=== PATIENT | male | born 2005 | race Two or more races ===

== ENCOUNTER 2025-01-03 21:57 | Emergency (ER) | payer MEDICAID, MEDICARE ==
[~2025-01-03] VITALS: Ht 167.6 cm; Wt 57.6 kg
[2025-01-03 22:23] VITALS: BP 120/73; PULSE 119; RESP 16; TEMP 99.8; O2SAT 96
[2025-01-03 23:04] LABS: Basophils # (auto) 0 10 ^3/uL (0-0.2); Basophils % (auto) 0.5 % (0.0-2.0); Eosinophils # (auto) 0 10 ^3/uL (0-0.8); Eosinophils % (auto) 0.3 % (0.0-7.0); Hematocrit 44.3 % (41.0-53.0); Hemoglobin 15.1 g/dL (13.5-17.5); Mean Corpuscular Hemoglobin 28.7 pg (28.0-32.0); Mean Corpuscular Hgb Conc. 34.1 g/dL (32.0-36.0); Mean Corpuscular Volume 84.2 fL (80.0-100.0); Monocytes # (auto) 0.5 10 ^3/uL (0-1.3); Neutrophils # (auto) 6.2 10 ^3/uL (1.6-8.6); Neutrophils % (auto) 70.2 % (37.0-80.0); Platelet Count (auto) 252 10^3/uL (140-450); Red Blood Cells 5.25 10^6/uL (4.5-5.90); Red Cell Distribution Width 15.1 % (11.8-14.3); White Blood Cell 8.9 10^3/uL (4.4-10.8)
[2025-01-03 23:16] LABS: Potassium 3.9 mmol/L (3.5-5.1); Sodium 142 mmol/L (136-145)
[2025-01-03 23:17] LABS: Anion Gap 8 (5-15); Carbon Dioxide 26 mmol/L (20-31)
[2025-01-03 23:21] LABS: Calcium 10.6 mg/dL (8.7-10.4); Chloride 108 mmol/L (98-107)
[2025-01-03 23:22] LABS: BUN/Creatinine Ratio 10.6 (10.0-20.0); Blood Urea Nitrogen 11 mg/dL (9-23)
[2025-01-03 23:23] LABS: Blood Alcohol 3.5 mg/dL (<10)
[2025-01-03 23:27] LABS: Acetaminophen < 2.0 UG/ML (10.0-20.0); Glucose 115 mg/dL (74-106); Salicylate < 3.0 mg/dL (-30)
--- NOTE | 2025-01-04 04:13 | ED.PDOC ---
History of Present Illness HPI Comments 19 y/o M presents with c/o auditory hallucinations. Patient endorses on hearing voices in his head, instructing him to kill himself by running to live traffic, lately. Denies any suicidal attempt along with any suicidal or homicidal ideations, visual hallucinations, or further associated symptoms. Chief Complaint: Mental Health Time Seen by MD: 23:30 Reviewed Notes: Nurses Notes, Medications, Allergies Allergies: Coded Allergies: No Known Drug Allergy (Verified Allergy, Unknown, 01/03/25) Information Source: Patient Mode of Arrival: Ambulatory Severity: Moderate Timing: Hours Duration: Since onset Prehospital treatment: None Past Medical History PAST MEDICAL HISTORY: DM, High Lipids, HTN All Other Systems: Reviewed and Negative (Comprehensive systems review obtained and negative except for what is stated in the HPI.) Physical Exam General Appearance: No Apparent Distress, Normal HEENT: Normal ENT Inspection, Pharynx Normal, TMs Normal Neck: Full Range of Motion, Non-Tender, Normal, Normal Inspection Respiratory: Chest Non-Tender, Lungs Clear, No Accessory Muscle Use, No Respiratory Distress, Normal Breath Sounds Cardiovascular: No Edema, No JVD, No Murmur, No Gallop, Normal Peripheral Pulses, Regular Rate/Rhythm Breast Exam: Deferred Gastrointestinal: No Organomegaly, Non Tender, No Pulsatile Mass, Normal Bowel Sounds, Soft Genitalia: Deferred Pelvic: Deferred Rectal: Deferred Extremities: No calf tenderness, Normal capillary refill, Normal inspection, Normal range of motion, Non-tender, No pedal edema Musculoskeletal : Apperance: Normal Neurologic: Alert, cloth shrinking supervisor II-XII nml as Tested, No Motor Deficits, Normal Affect, Normal Mood, No Sensory Deficits Cerebellar Function: Normal Reflexes: Normal Skin: Dry, Normal Color, Warm Lymphatic: No Adenopathy Was a procedure done? Was a procedure done?: No Differential Dx Considerations may include: schizoaffective disorder, depression, hopelessness, suicidal, among others X-Ray, Labs, Meds, VS Vital Signs Date Time Temp Pulse Resp B/P (MAP) Pulse Ox O2 Delivery O2 Flow Rate FiO2 01/03/25 22:23 99.8 119 16 120/73 (89) 96 99.8 Lab Test 01/03/25 22:45 Range/Units White Blood Count 8.9 4.4-10.8 10^3/uL Red Blood Count 5.25 4.5-5.90 10^6/uL Hemoglobin 15.1 13.5-17.5 g/dL Hematocrit 44.3 41.0-53.0 % Mean Corpuscular Volume 84.2 80.0-100.0 fL Mean Corpuscular Hemoglobin 28.7 28.0-32.0 pg Mean Corpuscular Hemoglobin Concent 34.1 32.0-36.0 g/dL Red Cell Distribution Width 15.1 H 11.8-14.3 % Platelet Count 252 140-450 10^3/uL Mean Platelet Volume 8.3 6.9-10.8 fL Neutrophils (%) (Auto) 70.2 37.0-80.0 % Lymphocytes (%) (Auto) 23.0 10.0-50.0 % Monocytes (%) (Auto) 6.0 0.0-12.0 % Eosinophils (%) (Auto) 0.3 0.0-7.0 % Basophils (%) (Auto) 0.5 0.0-2.0 % Neutrophils # (Auto) 6.2 1.6-8.6 10 ^3/uL Lymphocytes # (Auto) 2.0 0.4-5.4 10 ^3/uL Monocytes # (Auto) 0.5 0-1.3 10 ^3/uL Eosinophils # (Auto) 0 0-0.8 10 ^3/uL Basophils # (Auto) 0 0-0.2 10 ^3/uL Nucleated Red Blood Cells 0.0 % Sodium Level 142 136-145 mmol/L Potassium Level 3.9 3.5-5.1 mmol/L Chloride Level 108 H 98-107 mmol/L Carbon Dioxide Level 26 20-31 mmol/L Anion Gap 8 5-15 Blood Urea Nitrogen 11 9-23 mg/dL Creatinine 1.04 0.700-1.30 mg/dL Glomerular Filtration Rate Calc 106 >90 mL/min BUN/Creatinine Ratio 10.6 10.0-20.0 Serum Glucose 115 H 74-106 mg/dL Calcium Level 10.6 H 8.7-10.4 mg/dL Salicylates Level < 3.0 -30 mg/dL Acetaminophen Level < 2.0 L 10.0-20.0 UG/ML Plasma/Serum Blood Alcohol 3.5 <10 mg/dL Time of 1ST Reevaluation: 00:00 Reevaluation 1ST: Unchanged Patient Education/Counseling: Other (need for ED observation ) Family Education/Counseling: No Family Present Departure 1 Departure Time of Disposition: 05:16 (Patient presented with psychosis. Patient eloped from the emergency with warfarin parietal workup completion) Impression: Primary Impression: Psychosis Qualified Codes: F29 - Unspecified psychosis not due to a substance or known physiological condition Disposition: 07 LEFT AWOL/ELOPED Condition: Serious Critical Care Note Critical Care Time?: No Stability Stability form required: No Heart Score Heart Score: Heart Score Response (Comments) Value History N/A 0 EKG N/A 0 Age N/A 0 Risk Factors N/A 0 Troponin N/A 0 Total 0 I personally scribed for RIGOBERTO PEDRAZA MD ([email or web address]) on 01/04/25 at 04:13. Electronically submitted by Erik Thibodeaux ([email or web address]). RIGOBERTO PEDRAZA MD January 04, 2025 04:13
== END 2025-01-04 06:12 | disposition home or self-care (01) ==
LOC: ER 21:57
DX: F29 Unspecified psychosis not due to a substance or known physiological condition (principal); I10 Essential (primary) hypertension; E11.9 Type 2 diabetes mellitus without complications; E78.5 Hyperlipidemia, unspecified
CPT/HCPCS: 36415; 80048; 80320; 80329; 85025

== ENCOUNTER 2025-01-04 19:34 | Emergency (ER) | payer MEDICAID ==
[~2025-01-04] VITALS: Ht 167.6 cm; Wt 57.2 kg
--- NOTE | 2025-01-04 19:49 | ED.PDOC ---
History of Present Illness HPI Comments 19 y/o M is BIBA for suicidal ideations. Per EMS report, patient's sister called after patient contacted her outside a [place] restaurant, endorsing on having suicidal thoughts and a plan to end his life via cutting his wrist with a sharp object. On scene, no signs of attempt were noted. Vitals were stable and within normal limits. Patient reports a history of Bipolar disorder and suicidal ideations, with no current medication regimen placement. At time of assessment, patient admits to still being suicidal and denies having any homicidal ideations, auditory of visual hallucinations, or further associated symptoms. Time Seen by MD: 19:40 Reviewed Notes: Nurses Notes, Medical Lab Technician Notes, Medications, Allergies Allergies: Coded Allergies: No Known Drug Allergy (Verified Allergy, Unknown, 01/03/25) Information Source: Patient, Emergency Med Personnel Mode of Arrival: EMS Severity: Moderate Timing: Hours Duration: Since onset Prehospital treatment: 12 Lead EKG, Sales And Production Manager Past Medical History Past Medical History (Other): Bipolar disorder Surgical History: Denies all surgeries Family History Family History: Unknown Social History Smoker: Non-Smoker Alcohol: Denies ETOH Use Drugs: Denies Drug Use Lives In: Home All Other Systems: Reviewed and Negative (Comprehensive systems review obtained and negative except for what is stated in the HPI.) Physical Exam General Appearance: No Apparent Distress, Normal HEENT: Normal ENT Inspection, Pharynx Normal, TMs Normal Neck: Full Range of Motion, Non-Tender, Normal, Normal Inspection Respiratory: Chest Non-Tender, Lungs Clear, No Accessory Muscle Use, No Respiratory Distress, Normal Breath Sounds Cardiovascular: No Edema, No JVD, No Murmur, No Gallop, Normal Peripheral Pulses, Regular Rate/Rhythm Breast Exam: Deferred Gastrointestinal: No Organomegaly, Non Tender, No Pulsatile Mass, Normal Bowel Sounds, Soft Genitalia: Deferred Pelvic: Deferred Rectal: Deferred Extremities: No calf tenderness, Normal capillary refill, Normal inspection, Normal range of motion, Non-tender, No pedal edema Musculoskeletal : Apperance: Normal Neurologic: Alert, printing manager II-XII nml as Tested, No Motor Deficits, Normal Affect, Normal Mood, No Sensory Deficits Cerebellar Function: Normal Reflexes: Normal Skin: Dry, Normal Color, Warm Lymphatic: No Adenopathy Was a procedure done? Was a procedure done?: No Differential Dx Considerations may include: depression, suicidal, bipolar disorder, schizoaffective disorder, substance abuse, among others Time of 1ST Reevaluation: 20:20 Reevaluation 1ST: Unchanged Patient Education/Counseling: Treatment, Other (need for ED observation ) Family Education/Counseling: No Family Present Additional Information Previous visits reviewed: January 03, 2025 encounter for anxiety The following tests were ordered, and results were reviewed by me: UA, CBC, BMP, drug screen, blood alcohol, acetaminophen, salicylate Additional Information was gathered from interviewing the following independent historians: EMS I reviewed and agreed with the following test results read by other providers: N/A I discussed treatment and results with medical personnel and: patient Critical Care Note Critical Care Time?: No Stability Stability form required: No Heart Score Heart Score: Heart Score Response (Comments) Value History N/A 0 EKG N/A 0 Age N/A 0 Risk Factors N/A 0 Troponin N/A 0 Total 0 I personally scribed for RIGOBERTO PEDRAZA MD ([email or web address]) on 01/04/25 at 19:49. Electronically submitted by Erik Thibodeaux ([email or web address]). RIGOBERTO PEDRAZA MD January 04, 2025 19:49
[2025-01-04 20:15] LABS: Basophils # (auto) 0 10 ^3/uL (0-0.2); Basophils % (auto) 0.4 % (0.0-2.0); Eosinophils # (auto) 0 10 ^3/uL (0-0.8); Eosinophils % (auto) 0.4 % (0.0-7.0); Hematocrit 47.2 % (41.0-53.0); Hemoglobin 15.8 g/dL (13.5-17.5); Lymphocytes # (auto) 3.2 10 ^3/uL (0.4-5.4); Lymphocytes % (auto) 35.3 % (10.0-50.0); Mean Corpuscular Hemoglobin 28.3 pg (28.0-32.0); Mean Corpuscular Hgb Conc. 33.5 g/dL (32.0-36.0); Mean Corpuscular Volume 84.5 fL (80.0-100.0); Monocytes # (auto) 0.7 10 ^3/uL (0-1.3); Neutrophils % (auto) 55.9 % (37.0-80.0); Nucleated Red Blood Cells % 0.1 %; Platelet Count (auto) 231 10^3/uL (140-450); Red Blood Cells 5.59 10^6/uL (4.5-5.90); Red Cell Distribution Width 14.7 % (11.8-14.3)
[2025-01-04 20:24] LABS: Sodium 143 mmol/L (136-145)
[2025-01-04 20:25] LABS: Anion Gap 8 (5-15); Carbon Dioxide 28 mmol/L (20-31)
[2025-01-04 20:30] LABS: BUN/Creatinine Ratio 9.8 (10.0-20.0); Blood Urea Nitrogen 10 mg/dL (9-23); Glucose 94 mg/dL (74-106)
[2025-01-04 20:31] LABS: Blood Alcohol < 3.0 mg/dL (<10); Calcium 10.6 mg/dL (8.7-10.4); Chloride 107 mmol/L (98-107)
[2025-01-04 20:32] LABS: Acetaminophen < 2.0 UG/ML (10.0-20.0); Salicylate < 3.0 mg/dL (-30)
[2025-01-04 20:56] VITALS: PULSE 96; RESP 12; O2SAT 96
--- NOTE | 2025-01-05 01:48 | DVHINCON2 ---
Date of Service if different f: January 05, 2025 Time of Service: 01:28 Consult Consult Note PSYCHIATRY ED NEW CONSULT HPI: 19 yo pt with unclear PPH presents to ED BIBA for safety, psychiatric stabilization, and possible med initiation/optimization in setting of homelessness, depression, anxiety, and passive SI. Psychiatry consulted for safety evaluation and recommendations in context of current presentation Per pt, over past several weeks experiencing worsening depressed mood, hopelessness/helplessness, negative thoughts, loss of interest, decreased energ y, poor sleep, some decline in self care and anxiety symptoms to include excessive worry, paranoia, feeling tensed, threatening AH, and irritability. Also intermittent SI that are fleeting with plan to cut self with knife. Reports primary stress as unemployment, lack of meaningful relationships, inadequate housing, limited support system, and financial strains. Denies HI/VH/cataton ic/perceptual disturbances/personality changes. Pt currently does not have active outpt MH services established at this time. C urrently not on any psychotropic agents, no prior psych med trials Freq ETOH and THC use, denies IDU Single, no children, unemployed, homeless for past week after sister kicked him out due to THC use, HS grad, limited support system noted (immediate family) Unknown trauma hx. Denies FH of psych hospitalizations, suicide attempts, or completed suicides No acute medical/chronic pain issues, hx of seizures/TBI, or recent head injuries, NKDA Denies hx of SI/SIB/SA/PSG or prior psych hospitalizations/5150 holds. Denies history of violence, unprovoked aggression, or assaultive behaviors. Denies recent hx of impulsivity, attention seeking behaviors, anger outbursts, emotional dysregulation, mood reactivity, or engaging in risky behaviors. Denies any legal problems. Does not have access to firearms MSE: General Appearance/Behavior: Alert and awake; appears stated age, fair grooming and hygiene; calm and cooperative, fair eye contact, no PMA/PMR Speech: coherent, rrr Thought Process: linear, logical, appears goal-directed Thought Content: Abnormal Thoughts and Perceptions: denies dissociative symptoms Homicidality / Violent Thoughts: adamantly denies HI Suicidality: passive SI Hallucinations: vague AH Delusions: mild paranoia Obsessions /compulsions: None Judgment and Insight: fair/marginal Mood & Affect: "depressed" with mood-congruent, somewhat restricted but appropriate Orientation: oriented to person, place, time Attention/Concentration: appears intact Cognition: grossly intact Assessment: 19 yo pt with unclear PPH presents to ED BIBA for safety, psychiatric stabilization, and possible med initiation/optimization in setting of homelessness, depression, anxiety, and passive SI Pt is currently expressing some SI with moderate interference in daily functioning in setting of several recent acute life stressors (see hpi). Limited protective factors presently. Not on any psychotropics which maybe contributing to current symptoms. No outpt MH services at present. Pt agrees to talk with staff instead of acting on any suicidal feelings while in ED. Pt medically cleared in ED Hence, pts acute safety risk is moderate and is appropriate for inpatient psychiatric admission for safety, psychiatric stabilization, and possible medication initiation/optimization. Pt willing to transfer to inpt psych facility voluntarily. Consider 5150 hold for DTS ONLY if needed for transfer or if no voluntary beds are available Primary Diagnosis: Adjustment disorder with depressed mood and anxiety. Major Depressive disorder, moderate, w/PF. THC use d/o, unspecified Recommend VOL transfer to inpt psych facility for higher level of care per pts request 1:1 sitter is recommended Maintain suicide/elopement precautions Start Olanzapine 5 mg po qhs - first dose now Risks/benefits/alternative treatments discussed, informed consent provided by pt If patient later refuses voluntary hospitalization/ requests to be discharged from ED prior to transfer, pt will need 5150 DTS hold Pt verbalized understanding and is receptive to above tx plan This case was discussed with ED nurse/provider and all parties in agreement with above tx plan Jason Price MD Plan discussed with: Patient JASON PRICE MD January 05, 2025 01:48
[2025-01-05] MEDS: OLANZapine 5 MG TAB PO ONE (02:23)
[2025-01-05 16:50] VITALS: BP 131/68; PULSE 84; RESP 14; TEMP 98; O2SAT 98
== END 2025-01-05 18:35 | disposition short-term general hospital (02) ==
LOC: EDBD 19:34 → ER 19:34
DX: F43.23 Adjustment disorder with mixed anxiety and depressed mood (principal); F32.1 Major depressive disorder, single episode, moderate; Z56.0 Unemployment, unspecified
CPT/HCPCS: 36415; 80048; 80320; 80329; 85025